=== PATIENT | female | born 1935 | race African-American/Black ===

== ENCOUNTER 2019-08-27 13:45 | Inpatient (IN) ==
[2019-08-27] MEDS ORDERED: SODIUM CHLORIDE 0.9% 1,000 ML IV STA (14:05)
[2019-08-27 14:48] LABS: Apearance,Urine CLOUDY (Clear); Bacteria,Urine Many /HPF (Few); Bilirubin,Urine Negative (Negative); Blood, Urine Large mg/dL (Negative); Glucose,Urine (UA) 50 mg/dL (Negative); Ketones,Urine Negative (Negative); Mucus,Urine Many /LPF (Occasional); Nitrite,Urine Negative (Negative); Protein,Urine 30 MG/DL; RBC,Urine 32808 /HPF (0-4); Urine Color Yellow (Yellow); Urine Specific Gravity 1.005 (1.001-1.035); Urine Urobilinogen < 2.0 EU/DL (0.2-1.0); WBC,Urine 4020 /HPF (0-6)
[2019-08-27] MEDS ORDERED: cefTRIAXone 1,000 MG in SODIUM CHLORIDE 0.9% 100 ML IV STA (14:54)
[2019-08-27 15:04] LABS: Basophils % 0.2 % (0.0-0.8); Eosinophils % 0.1 % (0.00-10.9); Hematocrit 26.6 VOL% (35.7-47.0); Immature Granulocytes Absolute 0.12 #; Lymphocytes % 17.7 % (21.3-54.2); Mean Corpuscular HGB Conc 30.1 GM/DL (32-36); Mean Corpuscular Volume 96.7 FL (87-102); Mean Platelet Volume 10.4 FL (9.6-12.0); Monocytes % 4.8 % (1.7-12.7); NRBC # 0.05 10*3/uL; Neutrophils % 76.2 % (38.7-73.9); Platelet Count 288 T/CUMM (130-400); Red Blood Count 2.75 MC/CUMM (3.8-5.5); Red Cell Distribution Width 18.4 % (9.3-17.3); White Blood Count 11.5 T/CUMM (4-12)
[2019-08-27 15:15] LABS: INR 1.2; PT Patient Result 12.8 SECS (9.8-11.9)
[2019-08-27 15:35] LABS: Albumin 2.4 G/DL (3.4-5.0); Bilirubin,Total 0.5 MG/DL (0.2-1.0); Calcium 9.2 MG/DL (8.5-10.1); Osmolality,Calculated 306.1 MOS/KG (273-304)
[2019-08-27] MEDS ORDERED: GLUCAGON 1 MG VIAL IM PRN (16:32)
[2019-08-27] MEDS ORDERED: DEXTROSE 10% 250 ML BAG IV PRN (16:32)
[2019-08-27] MEDS ORDERED: SODIUM CHLORIDE 0.9% 1,000 ML IV PRN (16:37)
[2019-08-27 16:49] LABS: Basophils % 0.1 % (0.0-0.8); Eosinophils % 0.2 % (0.00-10.9); Hematocrit 27.3 VOL% (35.7-47.0); Hemoglobin 8.2 GM/DL (12.0-16.0); Immature Granulocytes % 1.4 %; Immature Granulocytes Absolute 0.18 #; Lymphocytes # 2.3 10*3/uL (1.4-4.0); Lymphocytes % 18.4 % (21.3-54.2); Mean Corpuscular Volume 97.5 FL (87-102); Mean Platelet Volume 11.2 FL (9.6-12.0); Monocytes % 4.1 % (1.7-12.7); NRBC # 0.05 10*3/uL; Neutrophils % 75.8 % (38.7-73.9); Platelet Count 310 T/CUMM (130-400); Red Cell Distribution Width 18.2 % (9.3-17.3); White Blood Count 12.5 T/CUMM (4-12)
[2019-08-27 16:59] LABS: Ferritin 517.7 ng/ml (8-252)
[2019-08-27 17:07] LABS: Folate 12.6 NG/ML (5.4-24.0); Vitamin B12 973 PG/ML (211-911)
[2019-08-27 17:52] LABS: Sedimentation Rate-Westergren 107 MM/HR (0-30)
[2019-08-27] MEDS: dilTIAZem Drip 125 MG/125 ML PREMIX IV SCH (18:16)
[2019-08-27] MEDS ORDERED: METOPROLOL TARTRATE 25 MG TABLET PO SCH (21:00)
[2019-08-27] MEDS: traZODone 50 MG TABLET PO SCH (21:41)
[2019-08-27] MEDS: GABAPENTIN 100 MG CAPSULE PO SCH (21:41)
[2019-08-27] MEDS: PANTOPRAZOLE 40 MG VIAL IV SCH (21:41)
[2019-08-28 07:03] LABS: Basophils % 0.1 % (0.0-0.8); Eosinophils % 0.2 % (0.00-10.9); Hematocrit 21.6 VOL% (35.7-47.0); Immature Granulocytes % 1.1 %; Lymphocytes # 2.3 10*3/uL (1.4-4.0); Lymphocytes % 24.9 % (21.3-54.2); Mean Corpuscular HGB Conc 29.6 GM/DL (32-36); Mean Corpuscular Volume 98.6 FL (87-102); Mean Platelet Volume 10.8 FL (9.6-12.0); Monocytes % 5.3 % (1.7-12.7); NRBC # 0.03 10*3/uL; Neutrophils % 68.4 % (38.7-73.9); Platelet Count 229 T/CUMM (130-400); Red Blood Count 2.19 MC/CUMM (3.8-5.5); Red Cell Distribution Width 18.5 % (9.3-17.3); White Blood Count 9.1 T/CUMM (4-12)
[2019-08-28 07:06] LABS: Hemoglobin 6.4 GM/DL (12.0-16.0)
[2019-08-28 07:19] LABS: Calcium 8.9 MG/DL (8.5-10.1); Osmolality,Calculated 304.7 MOS/KG (273-304)
[2019-08-28] MEDS ORDERED: SODIUM CHLORIDE 0.9% 1,000 ML IV PRN (08:12)
[2019-08-28] MEDS: cefTRIAXone 1,000 MG in SYRINGE 1 EACH IV SCH (09:27)
[2019-08-28] MEDS: PANTOPRAZOLE 40 MG VIAL IV SCH ×2 (09:31→20:30)
[2019-08-28] MEDS: MEMANTINE 5 MG TABLET PO SCH (09:31)
[2019-08-28 10:34] LABS: Hemoglobin A1 (Alkaline) 97.8 % (96.5-98.5); Hemoglobin A2 (Alkaline) 2.2 % (1.5-3.5)
[2019-08-28] MEDS ORDERED: VANCOMYCIN INJ 1,250 MG in SODIUM CHLORIDE 0.9% 250 ML IV ONE (15:00)
[2019-08-28] MEDS: METOPROLOL TARTRATE 25 MG TABLET PO SCH ×2 (15:35→20:29)
[2019-08-28] MEDS: traZODone 50 MG TABLET PO SCH (20:30)
[2019-08-28] MEDS: GABAPENTIN 100 MG CAPSULE PO SCH (20:30)
[2019-08-29 05:35] LABS: Basophils % 0.3 % (0.0-0.8); Eosinophils % 0.4 % (0.00-10.9); Hematocrit 33.2 VOL% (35.7-47.0); Hemoglobin 10.4 GM/DL (12.0-16.0); Immature Granulocytes % 2.7 %; Immature Granulocytes Absolute 0.25 #; Lymphocytes # 1.9 10*3/uL (1.4-4.0); Lymphocytes % 20.4 % (21.3-54.2); Mean Corpuscular HGB Conc 31.3 GM/DL (32-36); Mean Platelet Volume 10.3 FL (9.6-12.0); Monocytes % 6.1 % (1.7-12.7); NRBC # 0.08 10*3/uL; Neutrophils % 70.1 % (38.7-73.9); Platelet Count 192 T/CUMM (130-400); Red Blood Count 3.57 MC/CUMM (3.8-5.5); Red Cell Distribution Width 17.9 % (9.3-17.3); White Blood Count 9.2 T/CUMM (4-12)
[2019-08-29 05:55] LABS: Calcium 9.1 MG/DL (8.5-10.1); Osmolality,Calculated 300.6 MOS/KG (273-304)
[2019-08-29] MEDS ORDERED: LACTATED RINGERS 1,000 ML IV SCH (08:00)
[2019-08-29] MEDS: cefTRIAXone 1,000 MG in SYRINGE 1 EACH IV SCH (08:58)
[2019-08-29] MEDS: PANTOPRAZOLE 40 MG VIAL IV SCH (08:58)
[2019-08-29] MEDS ORDERED: VANCOMYCIN INJ 1,000 MG in SODIUM CHLORIDE 0.9% 250 ML IV PRN (09:00)
[2019-08-29] MEDS: MEMANTINE 5 MG TABLET PO SCH ×2 (09:02→13:29)
[2019-08-29] MEDS: ATORVASTATIN 20 MG TABLET PO SCH ×2 (09:02→13:29)
[2019-08-29] MEDS: METOPROLOL TARTRATE 25 MG TABLET PO SCH ×4 (09:02→20:11)
[2019-08-29] MEDS ORDERED: LIDOCAINE 2% 5 ML VIAL ONE (09:30)
[2019-08-29] MEDS ORDERED: propofoL 200 MG/20 ML VIAL IV ONE (09:30)
[2019-08-29] MEDS ORDERED: FUROSEMIDE 40 MG/4 ML VIAL IV SCH (12:00)
[2019-08-29] MEDS: AMOXICILLIN/CLAV 500 MG TABLET PO SCH ×2 (13:29→20:11)
[2019-08-29] MEDS: dilTIAZem Drip 125 MG/125 ML PREMIX IV SCH (13:38)
[2019-08-29] MEDS: traZODone 50 MG TABLET PO SCH (20:10)
[2019-08-29] MEDS: GABAPENTIN 100 MG CAPSULE PO SCH (20:10)
[2019-08-29] MEDS: PANTOPRAZOLE 40 MG TABLET PO SCH (20:11)
[2019-08-29] MEDS ORDERED: VANCOMYCIN INJ 750 MG in SODIUM CHLORIDE 0.9% 250 ML IV SCH (21:00)
[2019-08-30 06:10] LABS: Basophils % 0.3 % (0.0-0.8); Eosinophils # 0.1 10*3/uL (0.0-0.87); Eosinophils % 0.6 % (0.00-10.9); Hematocrit 33.9 VOL% (35.7-47.0); Hemoglobin 10.4 GM/DL (12.0-16.0); Immature Granulocytes % 2.3 %; Immature Granulocytes Absolute 0.21 #; Lymphocytes # 1.9 10*3/uL (1.4-4.0); Lymphocytes % 20.6 % (21.3-54.2); Mean Corpuscular HGB Conc 30.7 GM/DL (32-36); Mean Corpuscular Volume 96.3 FL (87-102); Mean Platelet Volume 9.8 FL (9.6-12.0); Monocytes % 6.2 % (1.7-12.7); NRBC # 0.02 10*3/uL; Platelet Count 201 T/CUMM (130-400); Red Blood Count 3.52 MC/CUMM (3.8-5.5); Red Cell Distribution Width 17.8 % (9.3-17.3); White Blood Count 9.1 T/CUMM (4-12)
[2019-08-30 07:00] LABS: Osmolality,Calculated 295.6 MOS/KG (273-304)
[2019-08-30] MEDS: METOPROLOL TARTRATE 25 MG TABLET PO SCH ×3 (08:57→21:45)
[2019-08-30] MEDS: MEMANTINE 5 MG TABLET PO SCH (08:57)
[2019-08-30] MEDS: AMOXICILLIN/CLAV 500 MG TABLET PO SCH ×2 (08:57→21:45)
[2019-08-30] MEDS: PANTOPRAZOLE 40 MG TABLET PO SCH ×2 (08:57→21:45)
[2019-08-30] MEDS ORDERED: DIGOXIN 0.5 MG/2 ML AMP IV ONE (16:00)
[2019-08-30] MEDS: SODIUM CHLORIDE 0.45% 1,000 ML IV SCH (16:17)
[2019-08-30] MEDS: traZODone 50 MG TABLET PO SCH (21:45)
[2019-08-30] MEDS: GABAPENTIN 100 MG CAPSULE PO SCH (21:45)
[2019-08-31 05:18] LABS: Basophils % 0.3 % (0.0-0.8); Eosinophils # 0.1 10*3/uL (0.0-0.87); Eosinophils % 0.6 % (0.00-10.9); Hematocrit 32.7 VOL% (35.7-47.0); Hemoglobin 10.1 GM/DL (12.0-16.0); Immature Granulocytes % 2.2 %; Immature Granulocytes Absolute 0.19 #; Lymphocytes # 1.6 10*3/uL (1.4-4.0); Lymphocytes % 18.8 % (21.3-54.2); Mean Corpuscular HGB Conc 30.9 GM/DL (32-36); Mean Corpuscular Volume 96.2 FL (87-102); Mean Platelet Volume 9.9 FL (9.6-12.0); Monocytes % 6.9 % (1.7-12.7); Neutrophils % 71.2 % (38.7-73.9); Platelet Count 181 T/CUMM (130-400); Red Cell Distribution Width 17.5 % (9.3-17.3); White Blood Count 8.6 T/CUMM (4-12)
[2019-08-31 06:12] LABS: Calcium 8.6 MG/DL (8.5-10.1)
[2019-08-31] MEDS: METOPROLOL TARTRATE 25 MG TABLET PO SCH ×2 (08:59→14:20)
[2019-08-31] MEDS: AMOXICILLIN/CLAV 500 MG TABLET PO SCH (08:59)
[2019-08-31] MEDS: MEMANTINE 5 MG TABLET PO SCH (08:59)
[2019-08-31] MEDS: PANTOPRAZOLE 40 MG TABLET PO SCH (08:59)
[2019-08-31] MEDS: ATORVASTATIN 20 MG TABLET PO SCH (08:59)
[2019-08-31] MEDS ORDERED: DIGOXIN 0.5 MG/2 ML AMP IV SCH (09:00)
[2019-08-31 12:11] VITALS: BP 120/69
[2019-08-31] MEDS: SODIUM CHLORIDE 0.45% 1,000 ML IV SCH (14:16)
== END 2019-08-31 16:27 | disposition home health service (06) | DRG 377 ==
LOC: EDBD → EDUNIT# → N.ED 13:45 → N.EDINP 16:32 → SUATTDRO 16:32 → N.TELES 17:19
PROVIDERS: ADMIT Internal Medicine; ATTEND Internal Medicine

== ENCOUNTER 2019-09-24 05:11 | Inpatient (IN) ==
[2019-09-19 10:30] LABS: Basophils % 0.2 % (0.0-0.8); Eosinophils % 0.1 % (0.00-10.9); Hematocrit 35.9 VOL% (35.7-47.0); Hemoglobin 11.1 GM/DL (12.0-16.0); Immature Granulocytes % 1.9 %; Immature Granulocytes Absolute 0.25 #; Lymphocytes # 1.8 10*3/uL (1.4-4.0); Lymphocytes % 13.8 % (21.3-54.2); Mean Corpuscular HGB Conc 30.9 GM/DL (32-36); Mean Corpuscular Volume 95.7 FL (87-102); Mean Platelet Volume 10.1 FL (9.6-12.0); Monocytes % 4.8 % (1.7-12.7); Neutrophils % 79.2 % (38.7-73.9); Platelet Count 208 T/CUMM (130-400); Red Blood Count 3.75 MC/CUMM (3.8-5.5); Red Cell Distribution Width 18.2 % (9.3-17.3); White Blood Count 13.3 T/CUMM (4-12)
[2019-09-19 11:23] LABS: Calcium 9.4 MG/DL (8.5-10.1); Osmolality,Calculated 294.3 MOS/KG (273-304)
[2019-09-24] MEDS ORDERED: ceFAZolin 1,000 MG in SYRINGE 1 EACH IV ONE (06:00)
[2019-09-24] MEDS ORDERED: DIAZEPAM 5 MG TABLET PO ONE (06:35)
[2019-09-24] MEDS ORDERED: FAMOTIDINE 20 MG TABLET PO ONE (06:35)
[2019-09-24] MEDS ORDERED: METOPROLOL TARTRATE 5 MG/5 ML VIAL IV ONE ×4 (06:56→07:45)
[2019-09-24] MEDS: LACTATED RINGERS 1,000 ML IV SCH (07:20)
[2019-09-24] MEDS ORDERED: ceFAZolin 1,000 MG VIAL ONE (07:21)
[2019-09-24 08:36] LABS: Basophils % 0.1 % (0.0-0.8); Hematocrit 35.8 VOL% (35.7-47.0); Immature Granulocytes Absolute 0.76 #; Lymphocytes # 2.6 10*3/uL (1.4-4.0); Lymphocytes % 13.7 % (21.3-54.2); Mean Corpuscular HGB Conc 30.7 GM/DL (32-36); Mean Corpuscular Volume 97.5 FL (87-102); Mean Platelet Volume 10.6 FL (9.6-12.0); Monocytes % 3.8 % (1.7-12.7); NRBC # 0.09 10*3/uL; Neutrophils % 78.4 % (38.7-73.9); Platelet Count 232 T/CUMM (130-400); Red Blood Count 3.67 MC/CUMM (3.8-5.5); Red Cell Distribution Width 19.2 % (9.3-17.3); White Blood Count 18.9 T/CUMM (4-12)
[2019-09-24 09:06] LABS: Hypochromasia Slight; Lymphocytes 11 % (20-55); Platelet Estimate Adequate; Segmented Neutrophils 88 % (50-85); Total Cells Counted 100
[2019-09-24 09:07] LABS: Blood Urea Nitrogen 50 MG/DL (7-18); Calcium 9.9 MG/DL (8.5-10.1); Estimated Glom Filtration Rate 26 ML/MIN; Glucose 187 MG/DL (74-106); Osmolality,Calculated 300.1 MOS/KG (273-304)
[2019-09-24] MEDS ORDERED: SODIUM CHLORIDE 0.9% 500 ML IV ONE (09:32)
[2019-09-24] MEDS ORDERED: ATORVASTATIN 20 MG TABLET PO SCH (11:28)
[2019-09-24] MEDS ORDERED: ASPIRIN EC 81 MG TABLET PO SCH (11:28)
[2019-09-24] MEDS ORDERED: ONDANSETRON 4 MG/2 ML VIAL IV PRN (11:28)
[2019-09-24] MEDS ORDERED: ACETAMINOPHEN 325 MG TABLET PO PRN (11:28)
[2019-09-24] MEDS ORDERED: PANTOPRAZOLE 40 MG TABLET PO SCH (11:28)
[2019-09-24] MEDS ORDERED: MEMANTINE 5 MG TABLET PO SCH (11:28)
[2019-09-24] MEDS ORDERED: MULTIVITAMIN (CENTRUM) TABLET PO SCH (11:28)
[2019-09-24] MEDS ORDERED: FUROSEMIDE 40 MG/4 ML VIAL IV ONE (14:05)
[2019-09-24] MEDS: METOPROLOL TARTRATE 25 MG TABLET PO SCH ×3 (14:41→20:38)
[2019-09-24] MEDS: PANTOPRAZOLE 40 MG TABLET PO SCH ×2 (14:41→20:38)
[2019-09-24] MEDS: BUDESONIDE/FORMOTEROL 160-4.5 INHALER 6 GM INH SCH ×2 (14:42→20:38)
[2019-09-24] MEDS ORDERED: traZODone 50 MG TABLET PO SCH (21:00)
[2019-09-25] MEDS: LACTATED RINGERS 1,000 ML IV SCH (07:42)
[2019-09-25 07:51] VITALS: BP 119/75
[2019-09-25 08:06] LABS: Blood Urea Nitrogen 58 MG/DL (7-18); Calcium 9.7 MG/DL (8.5-10.1); Estimated Glom Filtration Rate 21 ML/MIN; Glucose 166 MG/DL (74-106); Osmolality,Calculated 302.1 MOS/KG (273-304)
[2019-09-25 09:19] LABS: Basophils % 0.2 % (0.0-0.8); Hematocrit 34.3 VOL% (35.7-47.0); Hemoglobin 10.7 GM/DL (12.0-16.0); Immature Granulocytes % 3.1 %; Immature Granulocytes Absolute 0.52 #; Lymphocytes # 1.9 10*3/uL (1.4-4.0); Lymphocytes % 11.3 % (21.3-54.2); Mean Corpuscular HGB Conc 31.2 GM/DL (32-36); Mean Corpuscular Volume 96.3 FL (87-102); Mean Platelet Volume 11.5 FL (9.6-12.0); Monocytes % 3.1 % (1.7-12.7); NRBC # 0.13 10*3/uL; Neutrophils % 82.3 % (38.7-73.9); Platelet Count 199 T/CUMM (130-400); Red Blood Count 3.56 MC/CUMM (3.8-5.5); Red Cell Distribution Width 19.3 % (9.3-17.3)
[2019-09-25] MEDS ORDERED: ceFAZolin 1,000 MG VIAL ONE (10:08)
[2019-09-25] MEDS ORDERED: SUGAMMADEX 200 MG/2 ML VIAL IV ONE (10:34)
[2019-09-25 10:43] LABS: Anisocytosis 1+; Band Neutrophils 1 % (0-10); Lymphocytes 9 % (20-55); Nucleated Red Blood Cells 2 (0-5); Platelet Estimate Normal; Segmented Neutrophils 83 % (50-85); Total Cells Counted 100
[2019-09-25] MEDS ORDERED: AMIODARONE 450 MG/9 ML VIAL IV ONE (11:06)
[2019-09-25] MEDS ORDERED: AMIODARONE 150 MG/3 ML VIAL ONE ×2 (11:07→11:57)
[2019-09-25] MEDS ORDERED: PHENYLEPHRINE DRIP 40 MG/250 ML PREMIX IV ONE (11:24)
[2019-09-25] MEDS ORDERED: PHENYLEPHRINE DRIP 40 MG/250 ML PREMIX IV PRN (11:26)
[2019-09-25] MEDS ORDERED: MAGNESIUM SULFATE 1 GM/2 ML VIAL IM ONE (11:27)
[2019-09-25] MEDS ORDERED: MAGNESIUM SULF RIDER 50 ML IV ONE (11:29)
[2019-09-25] MEDS ORDERED: MAGNESIUM SULF RIDER 2 GM in PREMIX 1 EACH IV ONE (11:30)
[2019-09-25] MEDS ORDERED: AMIODARONE INJ 450 MG in DEXTROSE 5% 241 ML IV SCH (11:30)
[2019-09-25] MEDS ORDERED: EPINEPHrine 1 MG/ML VIAL ONE ×3 (11:40→11:57)
[2019-09-25] MEDS ORDERED: PHENYLEPHRINE DRIP 20 MG/250 ML PREMIX IV ONE (11:56)
[2019-09-25] MEDS ORDERED: ALBUMIN 5% 12.5 GM/250 ML VIAL IV ONE (11:56)
[2019-09-25] MEDS ORDERED: LIDOCAINE 2% 5 ML VIAL ONE (11:56)
[2019-09-25] MEDS ORDERED: GLYCOPYRROLATE 0.4 MG/2 ML VIAL ONE (11:57)
[2019-09-25] MEDS ORDERED: SODIUM CHLORIDE 0.9% 250 ML IV ONE (11:57)
[2019-09-25] MEDS ORDERED: SODIUM CHLORIDE 0.9% 1,000 ML IV ONE (11:57)
[2019-09-25] MEDS ORDERED: KETAMINE 500 MG/10 ML VIAL ONE (11:57)
[2019-09-25] MEDS ORDERED: ROCURONIUM 100 MG/10 ML VIAL IV ONE (11:57)
== END 2019-09-25 11:40 | disposition expired | DRG 239 ==
LOC: EDBD → N.SDSINP 05:11 → N.TELES 10:27 → MERGE 11:30 → N.ICU 09-25 11:16
PROVIDERS: ADMIT Surgery; ATTEND Surgery